=== PATIENT | male | born 1985 ===

== ENCOUNTER 2021-09-08 23:18 | Emergency (ER) | payer SELFPAY ==
[~2021-09-08] VITALS: Ht 167.6 cm; Wt 61.4 kg
[2021-09-08 23:30] VITALS: BP 134/88
[2021-09-09] MEDS ORDERED: naproxen 500mg tablet PO ONE (01:20)
== END 2021-09-09 01:29 ==
LOC: ER 23:20
DX: S00.11XA Contusion of right eyelid and periocular area, initial encounter (principal); F11.90 Opioid use, unspecified, uncomplicated; Z88.0 Allergy status to penicillin; V87.7XXA Person injured in collision between other specified motor vehicles (traffic), initial encounter; Y93.89 Activity, other specified; Y92.89 Other specified places as the place of occurrence of the external cause; Y99.8 Other external cause status
CPT/HCPCS: 70450; 70486; 71250; 72125; 74176; 99284